=== PATIENT | female | born 2000 | race Caucasian/White ===

== ENCOUNTER 2021-03-06 23:45 | Emergency (ER) | payer SELFPAY ==
[~2021-03-06] VITALS: Ht 165.1 cm; Wt 88.0 kg
[2021-03-07] MEDS ORDERED: METHOCARBAMOL 500MG TABLET PO ONE (01:45)
[2021-03-07] MEDS ORDERED: TRAMADOL 50MG TABLET PO ONE (01:45)
[2021-03-07] MEDS ORDERED: BACITRACIN ZINC OINT UDPKT TOP ONE (03:30)
[2021-03-07] MEDS ORDERED: NAPR-681 MT (04:48)
[2021-03-07] MEDS ORDERED: METH500T6 MT (04:48)
[2021-03-07 04:51] VITALS: BP 138/90
== END 2021-03-07 05:13 | disposition home or self-care (01) ==
LOC: ER 23:45
DX: S16.1XXA Strain of muscle, fascia and tendon at neck level, initial encounter (principal); S70.01XA Contusion of right hip, initial encounter; S00.81XA Abrasion of other part of head, initial encounter; S50.811A Abrasion of right forearm, initial encounter; M25.511 Pain in right shoulder; R07.81 Pleurodynia; G89.11 Acute pain due to trauma; Z32.02 Encounter for pregnancy test, result negative; W22.12XA Striking against or struck by front passenger side automobile airbag, initial encounter; V49.59XA Passenger injured in collision with other motor vehicles in traffic accident, initial encounter; Y93.89 Activity, other specified; Y92.488 Other paved roadways as the place of occurrence of the external cause
CPT/HCPCS: 71101; 73030; 73060; 73502; 81025; 99284